=== PATIENT | female | born 1980 | race Caucasian/White ===

== ENCOUNTER 2023-12-07 14:46 | Emergency (ER) | payer OTHER, SELFPAY ==
[2023-12-07 14:57] VITALS: BP 119/51
[2023-12-07 16:48] VITALS: BP 108/65
[2023-12-07 17:00] VITALS: BP 110/67
[2023-12-07 17:54] VITALS: BMI 25.1
--- NOTE | 2023-12-07 19:44 | ED.GENMED ---
History of Present Illness
General
Chief Complaint: Fainting Sensation
Source: patient
Exam Limitations: none
Time Seen by Provider: 12/07/23 17:14
Nursing documentation reviewed up to this point in time: agreed with
Travel History
Have you had any contact with someone who has COVID-19?: No
Do you have any symptoms of coronavirus? Fever > 100 degrees, chills, cough, shortness of breath, sore throat, loss of taste or smell, muscle aches, or headache?: No
History of Present Illness
History of Present Illness:
43-year-old female with history of thyroid disease presenting to the emergency department after presyncopal event while working. Did not fully pass out felt lightheaded sat down symptoms improved she works at a [employer] had labs drawn which
were normal as well as urinalysis. Also had an EKG which was normal as well. No ongoing symptoms at this point. No chest pain.
Review of Systems
Review of Systems
Allergies reviewed?: Yes
All Other Systems: ROS reviewed and negative except as documented in HPI and ROS
Phy Exam
Physical Exam
Physical Exam:
GENERAL: Alert , in no apparent distress
EYE: pupils equal and reactive
NECK: Supple, no significant adenopathy.
ENT: o/p clr, mmm.
CARDIAC: Regular rate and rhythm .
LUNGS: Clear breath sounds bilaterally, no acute respiratory distress, no wheezes/rales/rhonchi
ABDOMEN: Soft, without focal tenderness, no r/g, no cvat
NEUROLOGICAL: Alert and oriented, no focal neuro deficits
SKIN: Warm and dry, skin intact.
MUSCULOSKELETAL: No edema, well perfused.
PSYCH: Normal and appropriate interaction.
Course
Orders/Labs/Results
Orders:
Orders
12/07/23 15:02
Electrocardiogram (*1) Urgent
Reason for Study: Vertigo / Dizzy
12/07/23 15:03
EKG- Treatment ONCE
12/07/23 17:43
TSH Reflex To Free T4 Urgent
Vital Signs
Initial and Last Documented VS:
Initial Vital Signs
Temp Pulse Resp BP Pulse Ox
98.0 F 64 16 119/51 98
12/07/23 14:57 12/07/23 14:57 12/07/23 14:57 12/07/23 14:57 12/07/23 14:57
Last Documented Vital Signs
Temp Pulse Resp BP Pulse Ox
98.0 F 65 13 110/67 100
12/07/23 14:57 12/07/23 18:15 12/07/23 18:15 12/07/23 17:00 12/07/23 18:15
MDM/Problems Addressed
MDM/Problems Addressed:
43-year-old female presenting to the emergency department today with concerns of lightheadedness presyncopal episode. Now asymptomatic. Never fully passed out vital signs normal throughout stay normal heart and lung examination normal labs done as
an outpatient and normal TSH here. EKG normal no events on the monitor other than occasional PVCs. Patient advised for close cardiology follow-up return precautions given.
*Critical Care Note
Total Time (30-74mins, 75-104mins- exclusive of procedures): Not Applicable
ED Attending Note
-
Portions of this chart may have been created with voice recognition software.� Occasional wrong word or��sound alike� substitutions may have occurred due to the inherent limitations of voice recognition software.
Discharge Plan
Departure
Patient Disposition: Home (Routine Discharge)
Date of Disposition: 12/07/23
Time of Disposition: 19:45
Patient with high blood pressure during this ER visit?: No
Condition: Good
Covid-19: Not Applicable
Discharge Problem:
Syncope
Instructions: Syncope (Fainting) (DC), Chest Pain DCA Follow Up
Referrals:
Diony Bazan MD [Active] - Follow up in 2-3 days
Susie Choi DO [Family Provider] -
Stand Alone Forms: Return to Work
Activity Restrictions/Additional Instructions:
You can to the emergency department today after syncopal episode. Please follow closely with cardiology. You did have a few PVCs here but otherwise normal workup. Return to the emergency department immediately for any worsening, new or concerning
symptoms.
Interventions
Interventions:
ED- Fall Risk Assessment Last Done: 12/07/23 17:54
*ED COVID-19 Vaccine History Last Done: 12/07/23 14:57
ED- Cardiac Assessment Last Done: 12/07/23 17:54
ED- Neurological Assessment Last Done: 12/07/23 17:54
== END 2023-12-07 19:59 | disposition home or self-care (01) ==
LOC: EMR 14:46
PROVIDERS: Physician Assistant; EMERGENCY PHYSICIAN Emergency Medicine; FAMILY PHYSICIAN Family Medicine
DX: R55 Syncope and collapse (principal); E07.9 Disorder of thyroid, unspecified
CPT/HCPCS: 99283; 84443; 93005

== ENCOUNTER → 2023-12-30 14:00 | Outpatient (REF) | payer OTHER, SELFPAY | LOC: DHCBS MAIN 14:00 | PROVIDERS: ATTENDING PHYSICIAN Internal Medicine Interventional Cardiology; FAMILY PHYSICIAN Family Medicine | DX: R00.2 Palpitations (principal); R07.89 Other chest pain | CPT/HCPCS: 93306 ==

== ENCOUNTER → 2024-01-13 15:07 | Outpatient (REF) | payer OTHER, SELFPAY | LOC: RCS 15:07 | PROVIDERS: ATTENDING PHYSICIAN Internal Medicine Interventional Cardiology; FAMILY PHYSICIAN Family Medicine | DX: R00.2 Palpitations (principal); R07.89 Other chest pain | CPT/HCPCS: 93017 ==